=== PATIENT | male | born 1950 | race Caucasian/White ===

== ENCOUNTER 2017-09-07 09:33 | Emergency (ER) | payer OTHER, MEDICARE ==
[~2017-09-07] VITALS: Ht 185.4 cm; Wt 131.5 kg
--- NOTE | ~2017-09-07 | EKG ---
[address] [address] ELECTROCARDIOGRAM REPORT Name: DONY WINTER [id number] Admission: 09/07/17 Attend Phys: Discharge: 09/07/17 Date of : 52 Report #: [id number] THIS REPORT FOR: //name// [facility] ED Test Date: 2017-09-07 Test Time: 10:16:28 Pat Name: DONY WINTER Department: Room: Gender: Clinical Trial Assistant: [facility] : 1950 Requested By: Lisa Avina Order Number: [id number] MD: Sergio Song Measurements Intervals [place] Rate: 84 P: 25 ND: 199 QRS: 25 QRSD: 98 T: 2 QT: 370 QTc: 438 Interpretive Statements Sinus rhythm No previous ECG available for comparison Electronically Signed On 09-08-2017 8:37:59 [employer] by Sergio Song [email or web address] <ELECTRONICALLY SIGNED> By: Sergio Song MD 09/08/17 0837 [id number] [facility] Sergio Song MD /EPI
[~2017-09-07 09:33] MED LIST: HYDROCODONE-AP1 EAC6 PO; LIPITOR20 MG PO
[2017-09-07 10:12] LABS: ABSOLUTE NEUTROPHILS 5.1 thou/uL (1.4-8.2); BASOPHILS 0.6 % (0.0-2.0); EOSINOPHILS 1.2 % (0.0-3.0); HEMATOCRIT 45.2 % (42.0-52.0); HEMOGLOBIN 15.5 gm/dL (14.0-18.0); LYMPHOCYTES 18.8 % (24.0-44.0); MCH 29.3 pg (26.0-34.0); MCHC 34.3 g/dL (28.0-37.0); MCV 85.4 fL (80.0-100.0); MONOCYTES 10.2 % (1.0-8.0); PLATELET COUNT 224 thou/uL (150-400); POLYS 69.2 % (36.0-66.0); RBC 5.29 mil/uL (4.50-6.00); RDW 13.7 % (10.5-14.5); WBC 7.3 thou/uL (4.0-11.0)
[2017-09-07 10:22] LABS: CALCIUM 9.3 mg/dL (8.5-10.1); CREATININE 1.3 mg/dL (0.7-1.3); POTASSIUM 3.8 mmol/L (3.5-5.1)
[2017-09-07 10:28] LABS: ALBUMIN 3.9 g/dL (3.4-5.0); TOTAL BILIRUBIN 2.3 mg/dL (<0.1-1.0)
[2017-09-07 12:00] LABS: URINE BLOOD NEGATIVE (Negative); URINE CLARITY CLEAR; URINE COLOR YELLOW; URINE GLUCOSE-RANDOM* NEGATIVE (Negative); URINE KETONES TRACE (Negative); URINE LEUKOCYTES NEGATIVE (Negative); URINE NITRITE NEGATIVE (Negative); URINE PROTEIN (DIPSTICK) NEGATIVE (Negative); URINE SPECIFIC GRAVITY 1.015 (1.005-1.035); URINE UROBILINOGEN 0.2 E.U./dl (0.2-1.0)
[2017-09-07 12:04] LABS: ICTOTEST (BILI CONFIRMATORY) Negative (Negative); URINE BILIRUBIN NEGATIVE (Negative)
== END 2017-09-07 12:27 | disposition home or self-care (01) ==
LOC: ER 09:33
PROVIDERS: Physician Assistant
DX: K56.7 Ileus, unspecified (principal); G47.33 Obstructive sleep apnea (adult) (pediatric); E78.00 Pure hypercholesterolemia, unspecified; E66.9 Obesity, unspecified; Z90.49 Acquired absence of other specified parts of digestive tract

== ENCOUNTER 2021-02-12 10:38 | Inpatient (IN) | payer OTHER, MEDICARE ==
[~2021-02-12] VITALS: Ht 185.4 cm; Wt 128.8 kg
[2021-02-12 10:40] VITALS: BP 139/85
[2021-02-12 11:03] LABS: ABSOLUTE NEUTROPHILS 3.3 thou/uL (1.4-8.2); BASOPHILS 0.3 % (0.0-2.0); EOSINOPHILS 1.7 % (0.0-3.0); HEMATOCRIT 43.2 % (42.0-52.0); HEMOGLOBIN 14.7 gm/dL (14.0-18.0); LYMPHOCYTES 22.4 % (24.0-44.0); MCH 30.2 pg (26.0-34.0); MONOCYTES 12.4 % (1.0-8.0); PLATELET COUNT 199 thou/uL (150-400); POLYS 63.2 % (36.0-66.0); RBC 4.85 mil/uL (4.50-6.00); RDW 13.7 % (10.5-14.5); WBC 5.3 thou/uL (4.0-11.0)
[2021-02-12 11:27] LABS: CREATININE 1.1 mg/dL (0.7-1.3); POTASSIUM 3.9 mmol/L (3.5-5.1)
[2021-02-12 11:33] LABS: ALBUMIN 3.8 g/dL (3.4-5.0); TOTAL BILIRUBIN 2.7 mg/dL (0.2-1.0); TOTAL PROTEIN 8.1 g/dL (6.4-8.2)
[2021-02-12 12:16] LABS: URINE BLOOD TRACE (Negative); URINE CLARITY CLEAR; URINE COLOR YELLOW; URINE GLUCOSE-RANDOM* NEGATIVE (Negative); URINE KETONES 2+ (Negative); URINE LEUKOCYTES-REFLEX NEGATIVE (Negative); URINE NITRITE-REFLEX NEGATIVE (Negative); URINE PROTEIN (DIPSTICK) NEGATIVE (Negative)
[2021-02-12 12:28] LABS: ICTOTEST (BILI CONFIRMATORY) Negative (Negative); URINE BILIRUBIN NEGATIVE (Negative)
[2021-02-12 13:20] VITALS: BP 133/66
[2021-02-12 13:45] VITALS: BP 133/66
[2021-02-12 13:59] VITALS: BP 113/69
[2021-02-12] MEDS ORDERED: LATANOPROST 0.2.5 ML OPHTHALMIC (20:09)
[2021-02-12] MEDS ORDERED: VICKS VAPORUB170 G1 TP (20:11)
[2021-02-12] MEDS ORDERED: ADVIL200 M1 PO (20:12)
[2021-02-12 20:19] VITALS: BP 149/82
[2021-02-12 20:22] VITALS: BP 149/82
--- NOTE | 2021-02-13 04:10 | NUR ---
UPON SHIFT REPORT, REMAINING CONSENTS OBTAINED, FLUIDS STARTED. UPON SHIFT ASSESSMENT, PT AOX4. PT REPORTS 2-3/10 ABDOMINAL PAIN. PT HAS PRN IV MORPHINE Q4HR AND PRN PO APAP Q4HR AVAILABLE. PT DENIES SOB WHILE ON ROOM AIR. PT REMAINS NPO. PT WITHOUT NAUSEA OR EMESIS. PT AMBULATING INDEPENDENTLY TO BATHROOM, INTERMITTENTLY USING URINAL, RESTING IN BED OTHERWISE. FREQUENT REPOSITIONING ENCOURAGED WHILE IN BED, PT NOTED TO SHIFT INDEPENDENTLY. +2 PITTING EDEMA NOTED TO BLE. SENSATION INTACT, CAPILLARY REFILL LESS THAN 3SEC, PERIPHERAL PULSES PALPABLE IN ALL EXTREMITIES. PT EXPRESSES CONCERN FOR HS HOME MEDICATIONS, MEDICATIONS REVIEWED AND RECONCILED. ONCALL AREA INTELLIGENCE TECHNICIAN NOTIFIED, RECEIVED ORDERS TO RESUME HS HOME MEDICATIONS. PT ENCOURAGED TO NOTIFY STAFF FOR ALL NEEDS, CALL LIGHT WITHIN REACH, BED LOCKED IN LOWEST POSITION, FREQUENT MONITORING WILL CONTINUE.
[2021-02-13 05:50] LABS: ALBUMIN 2.8 g/dL (3.4-5.0); CALCIUM 7.8 mg/dL (8.5-10.1); CREATININE 0.8 mg/dL (0.7-1.3); MAGNESIUM 1.9 mg/dL (1.8-2.4); POTASSIUM 3.4 mmol/L (3.5-5.1)
[2021-02-13 09:11] VITALS: BP 128/78
--- NOTE | 2021-02-13 16:11 | NUR ---
PATIENT ALERT AND ORINTED X4, ON ROOM AIR, UP AD YG, VOID PER URINAL, ADVANCED TO CLEAR LIQUIDS AT LUNCH TOLERATED WELL, VITAL SIGNS STABLE, AND AFBRIELE. CALL LIGHT WITH IN REACH, WILL CONTINUE TO MONITOR.
[2021-02-13 18:13] VITALS: BP 148/90
[2021-02-13 19:23] VITALS: BP 165/95
[2021-02-14 04:47] VITALS: BP 139/92
--- NOTE | 2021-02-14 04:47 | NUR ---
Assumed pt care at 1900. A/OX4, VSS. Denies pain or N/V through the shift. Up ad sly w/o any problems, IV pole. IVF infusing via RAC w/o any problems noted. resting quietly without any distress noted,CPAP in place,will continue to monitor pt.
[2021-02-14 07:11] VITALS: BP 138/83
--- NOTE | 2021-02-14 09:03 | NUR ---
ASSUMED PT CARE THIS AM. PT IS ALERT & ORIENTED X4. PT HAS IV SITE ON R AC. PT IS ON ROOM AIR. NO C/O OF PAIN, NAUSEA AND VOMITING. ADVANCE DIET THIS AM PER DR ORDERED. PT TOLERATED DIET AND MEDICATION WELL. PT IS UP AD YG. PT HAS BM LAST NIGHT AND BEEN PASSING GAS TODAY. PT USES CPAP @ NIGHT. WILL CONTINUE TO MONITOR PT. FOLLOW POC.
[2021-02-14 09:29] VITALS: BP 138/83
--- NOTE | 2021-02-14 11:46 | NUR ---
CM REVIEWED CHART. PT HAS ORDERS TO DISCHARGE HOME TODAY WITH NO NEEDS. CM SPOKE WITH PATIENT AT THE BEDSIDE WHO REPORTS HE HAS A RIDE HOME AND HAS NO NEEDS FROM CM. PT REPORTS BEING INDEPEDENT. CASE CLOSED.
== END 2021-02-14 10:29 | disposition home or self-care (01) | DRG 388 ==
LOC: ER 10:38 → 4S 13:05 → EROBS 13:05 → 4S 14:12
PROVIDERS: Emergency Medicine; ADMIT Hospitalist; ATTEND Hospitalist
DX: K56.600 Partial intestinal obstruction, unspecified as to cause (principal); E43 Unspecified severe protein-calorie malnutrition; G47.33 Obstructive sleep apnea (adult) (pediatric); E78.00 Pure hypercholesterolemia, unspecified; K59.00 Constipation, unspecified; Z90.49 Acquired absence of other specified parts of digestive tract; Z79.899 Other long term (current) drug therapy
CPT/HCPCS: 10195